=== PATIENT | male | born 1975 | race Two or more races ===

== ENCOUNTER 2019-06-21 17:01 | Emergency (ER) | payer SELFPAY ==
[~2019-06-21] VITALS: Ht 167.6 cm; Wt 67.1 kg
--- NOTE | 2019-06-21 17:10 | NUR ---
ED Nurse Note: Patient walked in to ER c/o sore throat and fever x 5 days. AAO x4, VSS at this time, no recent travel.
[2019-06-21 17:11] VITALS: BP 121/80
--- NOTE | 2019-06-21 17:18 | Emergency Room Report ---
History of Present Illness General Chief Complaint: Flu Like Symptoms Source: Patient Present Illness HPI 43-year-old male with no significant past medical history, no COPD history, no recent travel, afebrile, here complaining of 3 days of a 3 out of 10 sore throat , congestion, and a minor cough. Has been taking [id number] medication for symptom relief. 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 Sitting comfortably with stable vital signs. Denies any chest pain shortness of breath at this time. COVID-19 risk:Travel to affect: No Has patient experienced chaparro: No Patient History Past Medical History: see triage record Past Surgical History: none Pertinent Family History: none Immunizations: UTD Reviewed Nursing Documentation: PMH: Agreed; PSxH: Agreed Nursing Documentation-PMH Past Medical History: No Stated History Review of Systems All Other Systems: negative except mentioned in HPI Physical Exam Vital Signs Date Time Temp Pulse Resp B/P (MAP) Pulse Ox O2 Delivery O2 Flow Rate FiO2 06/21/19 16:50 98.2 64 18 121/80 (94) 96 Room Air Sp02 EP Interpretation: reviewed, normal General Appearance: no apparent distress, alert, GCS 15, non-toxic Head: normocephalic, atraumatic Eyes: bilateral eye normal inspection, bilateral eye PERRL ENT: hearing grossly normal, normal pharynx, no angioedema, normal voice Neck: full range of motion, supple/symm/no masses Respiratory: chest non-tender, lungs clear, normal breath sounds, no rhonchi, no retraction, no wheezing, speaking full sentences Cardiovascular #1: regular rate, rhythm, no edema, no murmur Gastrointestinal: normal bowel sounds, non tender, soft, non-distended, no guarding, no rebound Rectal: deferred Genitourinary: no CVA tenderness Musculoskeletal: back normal, no calf tenderness Neurologic: alert, motor strength/tone normal, oriented x3, sensory intact, responsive, speech normal Psychiatric: judgement/insight normal, memory normal, mood/affect normal, no suicidal/homicidal ideation Skin: no rash Lymphatic: normal inspection, no adenopathy Medical Decision Making PA Attestation All my diagnosis and treatment plans were reviewed ad discussed with my supervising physician Dr. Andrews Diagnostic Impression: Primary Impression: URI (upper respiratory infection) ER Course 43-year-old male with no significant past medical history, no COPD history, no recent travel, afebrile, here complaining of 3 days of a 3 out of 10 sore throat , congestion, and a minor cough. Has been taking [id number] medication for symptom relief. 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 Sitting comfortably with stable vital signs. Denies any chest pain shortness of breath at this time. Ddx considered but are not limited to: Coronavirus, strep pharyngitis, URI, tonsillitis, peritonsillar abscess, influneza Vital signs: are WNL, pt. is afebrile H&PE are most consistent with: URI ORDERS: None ED INTERVENTIONS: None required at this time. DISCHARGE: At this time pt. is stable for d/c to home. Will provide printed patient care instructions, and any necessary prescriptions. Care plan and follow up instructions have been discussed with the patient prior to discharge. Take medication as directed, follow-up with your primary doctor, you need to stay home for self quarantine due to Covid 19 precautions for 14 days Last Vital Signs Date Time Temp Pulse Resp B/P (MAP) Pulse Ox O2 Delivery O2 Flow Rate FiO2 06/21/19 17:11 64 18 Room Air 06/21/19 17:11 98.2 121/80 96 Disposition: HOME, SELF-CARE Condition: Stable Patient Instructions: Upper Respiratory Infection, Adult, [id number] Additional Instructions: You can go to [facility] or [facility] for testing or primary doctor, at this time he did not need the criteria for testing for Covid 19 here however we highly recommend that you stay at home for the next 14 days and do not going to be community of people. Increase oral hydration, take Motrin or Tylenol for symptom relief. If worsening symptoms return to the emergency room Jared Velasquez Jun 21, 2019 17:18
[2019-06-21 18:10] VITALS: BP 121/80
--- NOTE | 2019-06-21 18:10 | NUR ---
ED Nurse Note: Pt cleared by health care Provider for discharge. DC instructions/prescription was given and explained to pt and verbalized understanding of teachings. All medical deviecs such as ID band removed. Pt is AAO x4, ambulatory and left with all personal belongings.
== END 2019-06-21 18:10 | disposition home or self-care (01) ==
LOC: EDBD 17:01 → EMR 17:15
DX: J06.9 Acute upper respiratory infection, unspecified (principal)
CPT/HCPCS: 99281